=== PATIENT | male | born 1970 | race Caucasian/White ===

== ENCOUNTER 2017-08-26 23:57 | Emergency (ER) | payer OTHER, SELFPAY ==
[2017-08-27 00:45] LABS: Troponin I Less than 0.010 ng/mL (< 0.028)
[2017-08-27 00:49] LABS: #Basophils 0.1 thou/uL (0.0-0.2); #Lymphocytes 1.5 thou/uL (1.20-3.40); #Monocytes 0.6 thou/uL (0.11-0.59); #Neutrophils 6.1 thou/uL (1.40-6.50); %Basophils 1.3 % (0.0-1.0); %Eosinophils 0.4 % (0.0-10.0); %Lymphocytes 17.4 % (21.0-51.0); %Monocytes 7.5 % (0.0-10.0); %Neutrophils 73.4 % (42.0-75.0); Eosinophils 1 % (0-10); Hemoglobin 15.1 g/dL (14.0-18.0); Lymphocytes 18 % (21-51); MDiff Complete? YES; Mean Corpuscular HGB CONC 36.6 g/dL (32.0-36.0); Mean Corpuscular Hemoglobin 28.4 pg (27.0-31.0); Mean Corpuscular Volume 77.6 fL (78.0-98.0); Monocytes 8 % (0-10); Neutrophil 73 % (42-75); PLT Morphology Comment Appears Adequate; Platelet Count 248 thou/uL (130-400); RBC Distribution Width 11.7 % (11.5-14.5); RBC Morphology Normal; Red Blood Cell (RBC) Count 5.33 mill/uL (4.70-6.10); White Blood Cell (WBC) Count 8.4 thou/uL (4.8-10.8)
[2017-08-27 00:51] LABS: CKMB 8.2 ng/mL (0-6.6)
[2017-08-27 01:01] LABS: ALT (SGPT) 35 U/L (8-55); AST (SGOT) 70 U/L (5-34); Albumin 4.7 g/dL (3.5-5.0); Alkaline Phosphatase 80 U/L (40-150); Anion Gap 19 mmol/L (10-20); BUN (Urea Nitrogen) 36 mg/dL (8.9-20.6); Bilirubin, Total 0.9 mg/dL (0.2-1.2); Calc. Creatinine Clearance 0 mL/min (70-130); Calcium 9.8 mg/dL (7.8-10.44); Carbon Dioxide 19 mmol/L (22-29); Chloride 103 mmol/L (98-107); Estimated GFR-MDRD 28; Globulin 3.4 g/dL (2.4-3.5); Glucose 92 mg/dL (70-105); Potassium 4.2 mmol/L (3.5-5.1); Protein, Total 8.1 g/dL (6.0-8.3); Sodium 137 mmol/L (136-145)
[2017-08-27 02:12] LABS: Clarity Cloudy (Clear); Glucose, Urine (Dipstick) Negative (Negative); Leukocyte Negative (Negative); Nitrite Negative (Negative); Protein, Urine (Dipstick) 100 mg/dL (Neg-Trace); Specific Gravity, Urine 1.027 (1.005-1.030)
[2017-08-27 02:13] LABS: Bilirubin Moderate (Negative); Blood, Urine Trace (Negative); Urobilinogen 0.2 mg/dL (0.2-1.0)
[2017-08-27 02:17] LABS: RBC/HPF 0-3 HPF (0-3)
[2017-08-27 02:18] LABS: Bacteria/HPF 1+ HPF (None Seen); Crystals/HPF 1+ AMORPH URATES HPF (Negative); Hyaline Casts/LPF 4-6 HYALINE CAST LPF (0-3 Hyaline); Squamous Epithelial 0-3 HPF (0-3); WBC/HPF 0-3 HPF (0-3)
--- NOTE | 2017-08-27 07:22 | RAD ---
PORTABLE CHEST: DATE: 08/26/17. FINDINGS: An AP portable film at 2357 is presented with no prior films available for comparison. The heart is normal in size and the lungs are clear. There is no infiltrate, edema, or congestion. No effusions are seen. A small subcentimeter nodular density near the left hilum may be superimposit ion of vessels or even a small calcified node. My inclination is that it is completely benign, but i t might bear a followup chest x-ray in 6 months. Mediastinum is unremarkable. IMPRESSION: 1. No acute findings. 2. Equivocal subcentimeter nodular area near the left hilum, very likely benign, but a 6-month follo wup film is recommended. CODE T POS: HOME
== END 2017-08-27 02:22 | disposition home or self-care (01) ==
LOC: BURERS 23:57
DX: E86.0 Dehydration (principal); N28.9 Disorder of kidney and ureter, unspecified; F41.9 Anxiety disorder, unspecified; F43.10 Post-traumatic stress disorder, unspecified; Z79.899 Other long term (current) drug therapy
CPT/HCPCS: 71045; 80053; 81003; 81015; 82553; 84484; 85025; 93005; 96360; 96361